=== PATIENT | female | born 1975 | race Caucasian/White ===

== ENCOUNTER 2019-02-15 15:24 | Emergency (ER) | payer SELFPAY ==
[2019-02-15] MEDS ORDERED: POLYMYXIN B SULFATE/TMP OPH SOLN (10 ML/ER DISP) OD ONE (18:15)
[2019-02-15] MEDS ORDERED: CETIRIZINE 10 MG TABLET PO ONE (18:16)
[2019-02-15] MEDS ORDERED: ACETAMINOPHEN 325 MG TABLET PO ONE (18:16)
--- NOTE | 2019-02-15 18:22 | ER Document Report ---
HPI - HPI Patient complains to provider of: Right eye swelling Time Seen by Provider: 02/15/19 17:34 Pain Level: 3 Context: Patient is an otherwise healthy 43-year-old female presents to the emergency department for right eye redness and discharge. Patient states yesterday she noted some minor erythema to her right eye. States also has some minor lower lid swelling. States this morning she woke up in her right eye was "crusted shut." Patient states the redness and swelling has continued and she is continued with generalized discharge which is why she presents to the emergency room. Patient's denying any other URI symptoms, denies fever. Denies any exposure to new detergents, lotions, eyedrops or make-up. Patient denies any foreign body sensation in her right eye, change in vision, pain with extraocular motion. - REPRODUCTIVE Reproductive: DENIES: : Past Medical History - General Information source: Patient - Social History Smoking Status: Unknown if Ever Smoked Family History: Reviewed & Not Pertinent, DM - Past Medical History Cardiac Medical History: Reports: Hx Hypertension Musculoskeletal Medical History: Reports Hx Arthritis, Reports Hx Musculoskeletal Trauma Traumatic Medical History: Reports: Hx Fractures - knn Past Surgical History: Reports: Hx Cholecystectomy - Immunizations Immunizations up to date: Yes Hx Diphtheria, Pertussis, Tetanus Vaccination: No - unknown Vertical Provider Document - CONSTITUTIONAL Agree With Documented VS: Yes Notes: GENERAL: Alert, interacts well. No acute distress. HEAD: Normocephalic, atraumatic. EYES: Pupils equal, round, and reactive to light. Extraocular movements intact and painless. No proptosis noted. Minor right conjunctival injection noted, mucoid discharge noted medial canthi. Lower lid minorly erythematous with some swollen tissue appears to be allergic in nature, not cellulitic. ENT: Oral mucosa moist, tongue midline. Nares patent, TM's intact, nonerythematous, nonbulging bilaterally. NECK: Full range of motion. Supple. Trachea midline. LUNGS: Clear to auscultation bilaterally, no wheezes, rales, or rhonchi. No respiratory distress. HEART: Regular rate and rhythm. No murmur ABDOMEN: Soft, non-tender. Non-distended. Bowel sounds present in all 4 quadrants. EXTREMITIES: Moves all 4 extremities spontaneously. No edema, normal radial and dorsalis pedis pulses bilaterally. No cyanosis. BACK: no cervical, thoracic, lumbar midline tenderness. No saddle anesthesia, normal distal neurovascular exam. NEUROLOGICAL: Alert and oriented x3. Normal speech. cranial nerves II through XII grossly intact. PSYCH: Normal affect, normal mood. SKIN: Warm, dry, normal turgor. - INFECTION CONTROL TRAVEL OUTSIDE OF THE [place] IN LAST 30 DAYS: No Course - Re-evaluation Re-evalutation: 02/15/19 18:23 Patient's physical exam is consistent with allergic reaction. The tissue under her right eye is swollen that does appear to have some serous fluid underneath it. I do not feel as though this is a cellulitic component at all. Patient has painless extraocular motion with no proptosis. There is scant amount of mucoid discharge noted at the medial canthus of the right eye. Discussed prophylactic treatment with antibiotic drops and also treating for allergic conjunctivitis. Discussed close return precautions and close follow-up with primary care provider. Patient stable for discharge. - Vital Signs Vital signs: Temp Pulse Resp BP Pulse Ox 98.9 F 67 16 135/86 H 100 02/15/19 16:07 02/15/19 16:07 02/15/19 16:07 02/15/19 16:07 02/15/19 16:07 Discharge - Discharge Clinical Impression: Conjunctivitis Qualifiers: Conjunctivitis type: acute Acute conjunctivitis type: unspecified Laterality: right Qualified Code(s): H10.31 - Unspecified acute conjunctivitis, right eye Condition: Stable Disposition: HOME, SELF-CARE Instructions: Conjunctivitis, Allergic, Conjunctivitis ([facility]), Eyedrop Use ([facility]) Additional Instructions: As we discussed you have been seen and treated in the emergency department for conjunctivitis. This is a bacterial infection of the inner lining of your eye. The skin around her eye that is red and swollen does appear to be an allergic reaction. Please make sure that you are using antibiotic eyedrops as prescribed. Please also make sure you are taking fcth-bap-lipqpto allergy medicine such as Zyrtec, Iris as instructed on the box. Please take [id number] Tylenol or Motrin for generalized pain. Please also follow-up with your primary care provider in the next 24 to 48 hours. As we discussed should you have any pain upon movement of your right eyeball or be unable to move your right eye in all 4 directions he should immediately return to the emergency room. Please also return to the emergency room for any other c oncerns. Prescriptions: Polymyxin B Sulf/Trimethoprim [Polytrim Eye Drops] 1 drop OD Q3H 7 Days #10 ml Forms: Return to Work
[2019-02-15 18:53] VITALS: BP 140/87
== END 2019-02-15 18:58 | disposition home or self-care (01) ==
LOC: ER 15:24
DX: H10.31 Unspecified acute conjunctivitis, right eye (principal); I10 Essential (primary) hypertension; Z90.49 Acquired absence of other specified parts of digestive tract
CPT/HCPCS: 99282; J3490

== ENCOUNTER 2019-04-20 17:06 | Emergency (ER) | payer SELFPAY ==
--- NOTE | 2019-04-20 18:09 | ER Document Report ---
ED Medical Screen (RME) - General Chief Complaint: Neck Swelling Stated Complaint: NECK LUMP Time Seen by Provider: 04/20/19 17:58 Mode of Arrival: Ambulatory Information source: Patient Notes: Patient presents with left-sided neck swelling for the past 2 weeks. Areas soft and nontender. Patient denies any fever or difficulty swallowing. Patient does have a cat but denies any recent scratches or bites. I have greeted and performed a rapid initial assessment of this patient. A comprehensive ED assessment and evaluation of the patient, analysis of test results and completion of the medical decision making process will be conducted by additional ED providers. TRAVEL OUTSIDE OF THE [place] IN LAST 30 DAYS: No - Related Data Allergies/Adverse Reactions: No Known Allergies Allergy (Verified 04/20/19 17:23) Past Medical History - Past Medical History Cardiac Medical History: Reports: Hx Hypertension Renal/ Medical History: Denies: Hx Peritoneal Dialysis Musculoskeltal Medical History: Reports Hx Arthritis, Reports Hx Musculoskeletal Trauma Traumatic Medical History: Reports: Hx Fractures - knn Past Surgical History: Reports: Hx Cholecystectomy - Immunizations Immunizations up to date: Yes Hx Diphtheria, Pertussis, Tetanus Vaccination: No - unknown Physical Exam - Vital signs Vitals: Temp Pulse Resp BP Pulse Ox 98.1 F 74 18 139/89 H 97 04/20/19 17:29 04/20/19 17:29 04/20/19 17:29 04/20/19 17:29 04/20/19 17:29 - General Notes: Left lateral neck swelling to the supraclavicular area Course - Vital Signs Vital signs: Temp Pulse Resp BP Pulse Ox 98.1 F 74 18 139/89 H 97 04/20/19 17:29 04/20/19 17:29 04/20/19 17:29 04/20/19 17:29 04/20/19 17:29
[2019-04-20 18:43] LABS: ABSOLUTE EOSINOPHILS # (AUTO) 0.1 10^3/uL (0.0-0.6); ABSOLUTE LYMPHOCYTES (AUTO) 1.4 10^3/uL (0.5-4.7); ABSOLUTE MONOCYTES (AUTO) 0.4 10^3/uL (0.1-1.4); ABSOLUTE NEUT (AUTO) 4.4 10^3/uL (1.7-8.2); BASOPHILS % (AUTO) 0.7 % (0-2); EOSINOPHILS % (AUTO) 1.8 % (0-6); HEMATOCRIT 37.1 % (36.0-47.0); LYMPHOCYTES % (AUTO) 21.5 % (13-45); MEAN CORPUSCULAR HEMOGLOBIN 23.9 pg (27.0-33.4); MEAN CORPUSCULAR HGB CONC 32.3 g/dL (32.0-36.0); MEAN CORPUSCULAR VOLUME 74 fl (80-97); MONOCYTES % (AUTO) 5.8 % (3-13); PLATELET COUNT 231 10^3/uL (150-450); RED CELL DISTRIBUTION WIDTH 15.7 % (11.5-14.0); SEGMENTED NEUTROPHILS % (AUTO) 70.2 % (42-78); TOTAL CELLS COUNTED % (AUTO) 100 %; WHITE BLOOD COUNT 6.3 10^3/uL (4.0-10.5)
[2019-04-20 19:08] LABS: ALBUMIN 4.5 g/dL (3.5-5.0); ALKALINE PHOSPHATASE 56 U/L (38-126); ANION GAP 8 (5-19); ASPARTATE AMINO TRANSFERASE 16 U/L (14-36); BILIRUBIN,DIRECT 0.3 mg/dL (0.0-0.4); BILIRUBIN,TOTAL 0.5 mg/dL (0.2-1.3); BLOOD UREA NITROGEN 12 mg/dL (7-20); CALCIUM 9.9 mg/dL (8.4-10.2); CARBON DIOXIDE 28 mmol/L (22-30); CHLORIDE 105 mmol/L (98-107); GLUCOSE 95 mg/dL (75-110); TOTAL PROTEIN 7.8 g/dL (6.3-8.2)
--- NOTE | 2019-04-20 19:42 | ER Document Report ---
ED General - General Chief Complaint: Neck Swelling Stated Complaint: NECK LUMP Time Seen by Provider: 04/20/19 17:58 Primary Care Provider: LEVAR LEYVA MD [COMMUNITY BASED STAFF] - Follow up in 3-5 days (primary care. ) Mode of Arrival: Ambulatory Notes: Patient is a 44-year-old female that presents to the emergency department for chief complaint of left neck swelling. Patient states that she noticed that her neck has been more swollen over the past 2 weeks, stayed about the same has not gotten any worse but has not improved much. She has not had any associated pain with this. She states she was having upper respiratory tract infection symptoms at that time with runny nose, congestion, that have improved some, but denies having any neck pain associated or stiffness. She states she incidentally noticed that, when she got sunburn it was looking closely at her neck and that her left side was more prominent. Denies history of thyroid disease. Denies any fevers, chills, night sweats, chest pain, shortness of breath or difficulty breathing. No other complaints at this time. Past Medical History: Denies chronic medical conditions Past Surgical History: Cholecystectomy Social History: Denies tobacco, alcohol or drug use, no primary care physician. Family History: Reviewed and noncontributory for presenting illness Allergies: Reviewed, see documented allergy list. REVIEW OF SYSTEMS: Other than noted above, the 12 point review of systems was reviewed with the patient and were negative, all pertinent findings are included in the HPI. PHYSICAL EXAMINATION: Vital signs reviewed, nursing noted reviewed. GENERAL: Well-appearing, well-nourished and in no acute distress. HEAD: Atraumatic, normocephalic. EYES: Eyes appear normal, extraocular movements intact, sclera anicteric, conjunctiva are normal. ENT: nares patent, oropharynx clear without exudates. Moist mucous membranes. NECK: Normal range of motion, supple without lymphadenopathy, the left side is more prominent, with no tenderness to palpation, no significant lymphadenopathy. Thyroid seems more prominent on the left side, compared to the right. LUNGS: Breath sounds clear to auscultation bilaterally and equal. No wheezes rales or rhonchi. HEART: Regular rate and rhythm without murmurs ABDOMEN: Soft, nontender, normoactive bowel sounds. No rebound, guarding, or rigidity. No masses appreciated. EXTREMITIES: Nontender, good range of motion, no pitting or edema. NEUROLOGICAL: No focal neurological deficits. Moves all extremities spontaneously Motor and sensory grossly intact on exam. PSYCH: Normal mood, normal affect. SKIN: Warm, Dry, normal turgor, no rashes or lesions noted on exposed skin TRAVEL OUTSIDE OF THE [place] IN LAST 30 DAYS: No - Related Data Allergies/Adverse Reactions: No Known Allergies Allergy (Verified 04/20/19 17:23) Past Medical History - General Information source: Patient - Social History Smoking Status: Never Smoker Family History: Reviewed & Not Pertinent, DM Patient has suicidal ideation: No Patient has homicidal ideation: No - Past Medical History Cardiac Medical History: Reports: Hx Hypertension Renal/ Medical History: Denies: Hx Peritoneal Dialysis Musculoskeletal Medical History: Reports Hx Arthritis, Reports Hx Musculoskeletal Trauma Traumatic Medical History: Reports: Hx Fractures - knn Past Surgical History: Reports: Hx Cholecystectomy - Immunizations Immunizations up to date: Yes Hx Diphtheria, Pertussis, Tetanus Vaccination: No - unknown Physical Exam - Vital signs Vitals: Temp Pulse Resp BP Pulse Ox 98.1 F 74 18 139/89 H 97 04/20/19 17:29 04/20/19 17:29 04/20/19 17:29 04/20/19 17:29 04/20/19 17:29 Course - Re-evaluation Re-evalutation: Patient seen and examined vital signs reviewed. Laboratory data and/or imaging were ordered as appropriate for the patient's presenting symptoms and complaint, with consideration of any critical or life threatening conditions that may be associated with their obtained history and exam as noted above. 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 No surrounding erythema, otherwise unremarkable. The patient was re-evaluated and was stable, no pain, appeared well, discussed with her the results, that she had branchial cleft cyst, likely got more swollen, due to her recent URI symptoms, I will put her on Augmentin, for more precautionary reasons, due to the increase in size, but she otherwise appears well, I feel she can be discharged to follow-up with ENT, and her primary care physician. I discussed with her that these are benign and gave her reassurance overall. 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 Results were discussed with the patient at this point, after careful consideration I feel that that patient can be discharged from the emergency department, the patient was educated treatments and reasons to return to the emergency department based on their presumed diagnosis as noted above, they were advised to followup with a primary care physician in 2-3 days. Patient was agreeable to plan of care. *Note is created using voice recognition software and may contain spelling, syntax or grammatical errors. Laboratory 04/20/19 04/20/19 04/20/19 18:25 18:25 19:50 WBC 6.3 RBC 5.00 Hgb 12.0 Hct 37.1 MCV 74 L MCH 23.9 L MCHC 32.3 RDW 15.7 H Plt Count 231 Lymph % (Auto) 21.5 Warren % (Auto) 5.8 Eos % (Auto) 1.8 Baso % (Auto) 0.7 Absolute Neuts (auto) 4.4 Absolute Lymphs (auto) 1.4 Absolute Monos (auto) 0.4 Absolute Eos (auto) 0.1 Absolute Basos (auto) 0.0 Seg Neutrophils % 70.2 Sodium 141.0 Potassium 4.0 Chloride 105 Carbon Dioxide 28 Anion Gap 8 BUN 12 Creatinine 0.63 Est GFR ( Amer) > 60 Est GFR (MDRD) Non-Af > 60 Glucose 95 Calcium 9.9 Total Bilirubin 0.5 Direct Bilirubin 0.3 Neonat Total Bilirubin Not Reportable Neonat Direct Bilirubin Not Reportable Neonat Indirect Bili Not Reportable AST 16 ALT 10 Alkaline Phosphatase 56 Total Protein 7.8 Albumin 4.5 TSH 0.95 Free T4 0.86 Free T3 pg/mL 3.67 Thyroid Ultrasound 04/20/19 18:06 IMPRESSION: Palpable abnormality about the leftward aspect of the neck corresponds to a large complex cystic lesion measuring up to 6.6 x 7.9 x 2.9 cm in size. The etiology and sterility of this collection is indeterminate. Consider correlation with contrast-enhanced CT of the neck. copyright 2010 [employer]- All Rights Reserved Soft Tissue Neck CT 04/20/19 21:18 IMPRESSION: 1. 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 No associated acute inflammatory changes. 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 Occasionally they become more swollen when you are fighting an infection, and we will place you on antibiotic for 7 days, to see if it improves, the swelling may take weeks to months for her to go back down. Please follow-up with her primary care physician, one has been listed with your paper work. Prescriptions: Amox Tr/Potassium Clavulanate [Augmentin 875-125 Tablet] 1 tab PO BID 7 Days #14 tablet Referrals: LEVAR LEYVA MD [COMMUNITY BASED STAFF] - Follow up in 3-5 days (primary care. )
[2019-04-20 20:20] LABS: FREE T3 3.67 pg/mL (2.77-5.27); FREE T4 (FREE THYROXINE) 0.86 ng/dL (0.78-2.19)
[2019-04-20 20:34] LABS: THYROID STIMULATING HORMONE 0.95 uIU/mL (0.47-4.68)
--- NOTE | 2019-04-20 21:14 | RADIOLOGY REPORT (SQ) ---
EXAM DESCRIPTION: US HEAD NECK SOFT TISSUE COMPLETED DATE/TME: 04/20/2019 18:06 CLINICAL HISTORY: 44 years, Female, L lat neck swelling COMPARISON: None. TECHNIQUE: Axial 2-D grayscale images of the left lateral neck were acquired. Doppler was utilized. LIMITATIONS: None. FINDINGS: Sonographic evaluation of the left lateral neck was performed at the site of the patient's palpable abnormality. Here, there is a large anechoic lesion with thin internal septations measuring approximately 6.6 x 7.9 x 2.9 cm in size. Focused sonographic evaluation of the right side of the neck was performed for comparison. IMPRESSION: Palpable abnormality about the leftward aspect of the neck corresponds to a large complex cystic lesion measuring up to 6.6 x 7.9 x 2.9 cm in size. The etiology and sterility of this collection is indeterminate. Consider correlation with contrast-enhanced CT of the neck. copyright 2010 [employer]- All Rights Reserved
--- NOTE | 2019-04-21 01:18 | RADIOLOGY REPORT (SQ) ---
EXAM DESCRIPTION: [facility]: CT NECK WITH IV CONTRAST CLINICAL HISTORY: 44 years Female; left neck swelling TECHNIQUE: CT soft tissue neck with contrast All CT scans at this facility use dose modulation, iterative reconstruction, and/or weight based dosing when appropriate to reduce radiation dose to as low as reasonably achievable. COMPARISON: None. FINDINGS: In the left neck posterior to the left sternocleidomastoid muscle, lateral to the carotid space, and lateral to the left paraspinal muscles there is a large homogenous hypodense structure 6.6 cm oblique AP x 4 centimeters oblique LR x 7 cm SI. No surrounding edema. Density is 10 HU. No enhancing wall or septations. The lesion extends to within 1 to 2 mm of the lateral margin of the left thyroid lobe. No definite sinus tract is identified. No cervical adenopathy. Salivary glands are unremarkable. There is a small 4 mm thyroid hypodensity, but no suspicious thyroid nodules. Larynx and epiglottis are normal. Visualized portions of the paranasal sinuses are clear. Mastoids are clear. Bony structures are within normal limits. Lung apices are clear. IMPRESSION: 1. 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 No associated acute inflammatory changes.
[2019-04-21 01:57] VITALS: BP 134/91
[2019-04-25 10:36] LABS: BARTONELLA HENSELAE IGG Negative titer (Neg:<1:320); BARTONELLA HENSELAE IGM Negative titer (Neg:<1:100); BARTONELLA QUINTANA IGG Negative titer (Neg:<1:320)
[2019-04-25 13:25] LABS: BARTONELLA QUINTANA IGM Negative titer (Neg:<1:100)
== END 2019-04-21 01:57 | disposition home or self-care (01) ==
LOC: ER 17:06
DX: Q18.0 Sinus, fistula and cyst of branchial cleft (principal); R22.1 Localized swelling, mass and lump, neck; I10 Essential (primary) hypertension; Z90.49 Acquired absence of other specified parts of digestive tract
CPT/HCPCS: 36415; 70491; 76536; 80053; 84439; 84443; 84481; 85025; 86317; 99284

== ENCOUNTER → 2019-08-11 | Outpatient (CLI) | payer OTHER ==
--- NOTE | 2019-08-11 16:28 | RADIOLOGY REPORT (SQ) ---
EXAM DESCRIPTION: CT SOFT TISSUE NECK WITH COMPLETED DATE/TIME: 08/11/2019 11:48 am REASON FOR STUDY: LOCALIZED SWELLING, MASS AND LUMP, NECK R22.1 LOCALIZED SWELLING, MASS AND LUMP, NECK COMPARISON: 04/20/2019. TECHNIQUE: Post IV contrasted scanning from skull base through lung apices with review of bone, soft tissue and lung windows. Reconstructed coronal and sagittal MPR images reviewed. All images stored on PACS. All CT scanners at this facility use dose modulation, iterative reconstruction, and/or weight based d osing when appropriate to reduce radiation dose to as low as reasonably achievable (ALARA). [facility]: Dose Right [facility]: CareDose [facility]: Dose Right [facility]: Teradose 4D [facility]: [email or web address] CONTRAST TYPE AND DOSE: contrast/concentration: Isovue 350.00 mg/ml; Total Contrast Delivered: 75.0 ml; Total Saline Delivered: 55.0 ml RENAL FUNCTION: None required. The patient is less than 50 years old. RADIATION DOSE: . LIMITATIONS: None. FINDINGS: SKULL BASE: Intact. MAJOR SALIVARY GLANDS: No solid or cystic masses. No inflammatory changes. LYMPHADENOPATHY: No adenopathy. MUCOSAL MASSES OR ASYMMETRY: No mucosal masses or asymmetry. LARYNX/CORDS: No abnormal findings. VASCULAR STRUCTURES: The major vessels are patent. LUNG APICES: Clear. BONES: Intact. THYROID: Normal size. No masses. PARANASAL SINUSES: Clear. OTHER: No other significant finding. IMPRESSION: NO SIGNIFICANT FINDING IN THE SOFT TISSUES OF THE NECK. THE PREVIOUSLY SEEN CYSTIC MASS ON THE LEFT SIDE OF THE NECK HAS BEEN REMOVED. NO ABNORMAL FINDINGS AT THE SURGICAL SITE. TECHNICAL DOCUMENTATION: JOB ID: [id number] Quality ID # [id number]: Final reports with documentation of one or more dose reduction techniques (e.g., Au tomated exposure control, adjustment of the mA and/or kV according to patient size, use of iterative reconstruction technique) 2010 [employer]- All Rights Reserved Reading location - IP/workstation name: [email or web address]
== END ==
LOC: RAD 10:18
PROVIDERS: ATTEND Otolaryngology
DX: R22.1 Localized swelling, mass and lump, neck (principal)
CPT/HCPCS: 70491; 81025

== ENCOUNTER 2020-02-07 23:38 | Emergency (ER) | payer MEDICAID, OTHER ==
[2020-02-08] MEDS ORDERED: CYCLOBENZAPRINE HCL 10 MG TABLET PO ONE (00:20)
[2020-02-08] MEDS ORDERED: METHYLPREDNISOLONE INJ 125 MG/2 ML SDV IV ONE (00:20)
[2020-02-08] MEDS ORDERED: KETOROLAC TROMETHAMINE 60 MG/2 ML SDV IM ONE (00:20)
--- NOTE | 2020-02-08 00:24 | ER Document Report ---
HPI - HPI Patient complains to provider of: Back pain Time Seen by Provider: 02/08/20 00:15 Pain Level: 3 Context: 44-year-old female previous history of lumbar herniated disks presents to the emergency room complaining of left lower back pain for the past 5 days. Worse today. Denies any trauma or injury. Has been taking Motrin without relief. Denies any loss control of her bowels or bladder, no saddle anesthesia. No red flags. Denies any urinary symptoms. No flank pain. Associated Symptoms: None Exacerbated by: Movement, Walking Relieved by: Denies Similar symptoms previously: Yes Recently seen / treated by doctor: No - ROS Systems Reviewed and Negative: Yes All other systems reviewed and negative - CONSTITUTIONAL Constitutional: DENIES: Fever - NEURO Neurology: DENIES: Weakness - CARDIOVASCULAR Cardiovascular: DENIES: Chest pain - RESPIRATORY Respiratory: DENIES: Trouble Breathing - GASTROINTESTINAL Gastrointestinal: DENIES: Abdominal Pain, Nausea - URINARY Urinary: DENIES: Dysuria, Urgency, Frequency - REPRODUCTIVE Reproductive: DENIES: : - MUSCULOSKELETAL Musculoskeletal: REPORTS: Back Pain - DERM Skin Color: Normal Skin Problems: None Past Medical History - General Information source: Patient - Social History Smoking Status: Never Smoker Frequency of alcohol use: None Drug Abuse: None Family History: Reviewed & Not Pertinent, DM Patient has homicidal ideation: No - Past Medical History Cardiac Medical History: Reports: Hx Hypertension Renal/ Medical History: Denies: Hx Peritoneal Dialysis Musculoskeletal Medical History: Reports Hx Arthritis, Reports Hx Musculos keletal Trauma Traumatic Medical History: Reports: Hx Fractures - knn Past Surgical History: Reports: Hx Cholecystectomy - Immunizations Immunizations up to date: Yes Hx Diphtheria, Pertussis, Tetanus Vaccination: No - unknown Vertical Provider Document - CONSTITUTIONAL Agree With Documented VS: Yes Exam Limitations: No Limitations General Appearance: Mild Distress - INFECTION CONTROL TRAVEL OUTSIDE OF THE [place] IN LAST 30 DAYS: No - HEENT HEENT: Atraumatic, Normocephalic - NECK Neck: Normal Inspection, Supple - RESPIRATORY Respiratory: Breath Sounds Normal, No Respiratory Distress, Chest Non-Tender. negative: Rales, Rhonchi, Wheezing - CARDIOVASCULAR Cardiovascular: Regular Rate, Regular Rhythm, No Murmur - GI/ABDOMEN Gastrointestinal: Abdomen Soft, Abdomen Non-Tender. negative: Abdominal Guarding, Abdominal Rebound, No Organomegaly - BACK Back: Abnormal Inspection - Tenderness on palpation from L4-S1. There is tenderness over the left sciatic notch. She has negative straight leg raising bilaterally.. negative: CVA Tenderness-Right, CVA Tenderness-Left - MUSCULOSKELETAL/EXTREMETIES Musculoskeletal/Extremeties: FROM, Non-Tender - NEURO Level of Consciousness: Awake, Alert, Appropriate Motor/Sensory: No Motor Deficit, No Sensory Deficit Deep Tendon Reflexes: 2+ Notes: Patella reflexes are equal and adequate bilaterally. She is ambulatory with a steady gait. She is neurovascularly intact. Course - Re-evaluation Re-evalutation: 02/08/20 01:09 Patient is resting comfortably with decreased pain. Ambulatory with a steady gait. Negative straight leg raising bilaterally. Neurovascularly intact. Counseled take all medications as prescribed. Outpatient follow-up with a primary care physician if not improving in 2 to 3 days. Patient was provided with on-call physician. Patient was given strict return to the emergency room guidelines. Return for any new or worsening symptoms. All questions were answered. Patient verbalized understanding and agrees with plan of care. - Vital Signs Vital signs: Temp Pulse Resp BP Pulse Ox 97.7 F 78 16 152/90 H 100 02/08/20 00:15 02/07/20 23:46 02/07/20 23:46 02/07/20 23:46 02/07/20 23:46 Discharge - Discharge Clinical Impression: Back pain with left-sided sciatica Condition: Stable Disposition: HOME, SELF-CARE Instructions: Low Back Pain ([facility]), Muscle Strain ([facility]), Warm Packs ([facility]) Additional Instructions: You have been seen in the Emergency Department (ED) today for back pain. Your workup and exam have not shown any acute abnormalities and you are likely suffering from muscle strain or possible problems with your discs, but there is no treatment that will fix your symptoms at this time. Please take the naproxen that has been prescribed as directed. You should also purchase a local lidocaine cream such as "aspercreme with lidocaine" and use per bottle instructions to the affected area. Apply heat to the area as often as you are able. Continue to keep active and avoid prolonged periods of bed rest. Please follow up with your doctor as soon as possible regarding today's ED visit and your back pain. Return to the ED for worsening back pain, fever, weakness or numbness of either leg, or if you develop either (1) an inability to urinate or have bowel movements, or (2) loss of your ability to control your bathroom functions (if you start having "accidents"), or if you develop other new symptoms that concern you.concern you. Prescriptions: Prednisone [Deltasone 20 mg Tablet] See Protocol PO DAILY 9 Days #18 tablet Cyclobenzaprine HCl [Flexeril 10 mg Tablet] 10 mg PO TIDP PRN #15 tab PRN Reason: Naproxen 500 mg PO BID PRN #14 tablet PRN Reason: Referrals: EVA CARRINGTON MD [NO LOCAL MD] - Follow up as needed STEFFI REYES MD [ACTIVE STAFF] - Follow up as needed
[2020-02-08] MEDS ORDERED: METHYLPREDNISOLONE INJ 125 MG/2 ML SDV IM ONE ×2 (00:30→00:31)
[2020-02-08 02:43] VITALS: BP 140/88
== END 2020-02-08 01:38 | disposition home or self-care (01) ==
LOC: ER 23:38
DX: M54.32 Sciatica, left side (principal); I10 Essential (primary) hypertension; Z90.49 Acquired absence of other specified parts of digestive tract
CPT/HCPCS: 99283; 96372; 96374; J3490; J1885; J2930

== ENCOUNTER 2020-08-12 11:25 | Emergency (ER) | payer MEDICAID, OTHER ==
--- NOTE | 2020-08-12 12:03 | EKG REPORT ---
SEVERITY:- OTHERWISE NORMAL ECG - SINUS RHYTHM T INVERSIONS IN V2, NONSPECIFIC, CLINICAL CORRELATION NEEDED. : Confirmed by: Corey Nava MD 12-Aug-2020 12:03:02
--- NOTE | 2020-08-12 12:33 | RADIOLOGY REPORT (SQ) ---
EXAM DESCRIPTION: CHEST SINGLE VIEW IMAGES COMPLETED DATE/TIME: 08/12/2020 12:24 pm REASON FOR STUDY: bed 2 palpitations COMPARISON: 2015 EXAM PARAMETERS: NUMBER OF VIEWS: One view. TECHNIQUE: Single frontal radiographic view of the chest acquired. RADIATION DOSE: NA LIMITATIONS: None. FINDINGS: LUNGS AND PLEURA: No opacities, masses or pneumothorax. No pleural effusion. MEDIASTINUM AND HILAR STRUCTURES: No masses. Contour normal. HEART AND VASCULAR STRUCTURES: Heart normal in size. Normal vasculature. BONES: No acute findings. HARDWARE: None in the chest. OTHER: No other significant finding. IMPRESSION: NO ACUTE RADIOGRAPHIC FINDING IN THE CHEST. TECHNICAL DOCUMENTATION: JOB ID: [id number] 2010 [employer]- All Rights Reserved Reading location - IP/workstation name: [email or web address]
[2020-08-12 12:49] LABS: ABSOLUTE BASOPHILS # (AUTO) 0.1 10^3/uL (0.0-0.2); ABSOLUTE EOSINOPHILS # (AUTO) 0.1 10^3/uL (0.0-0.6); ABSOLUTE MONOCYTES (AUTO) 0.4 10^3/uL (0.1-1.4); ABSOLUTE NEUT (AUTO) 3.3 10^3/uL (1.7-8.2); BASOPHILS % (AUTO) 1.2 % (0-2); EOSINOPHILS % (AUTO) 1.4 % (0-6); HEMATOCRIT 32.5 % (36.0-47.0); HEMOGLOBIN 10.2 g/dL (12.0-15.5); LYMPHOCYTES % (AUTO) 19.8 % (13-45); MEAN CORPUSCULAR HEMOGLOBIN 20.8 pg (27.0-33.4); MEAN CORPUSCULAR HGB CONC 31.3 g/dL (32.0-36.0); MEAN CORPUSCULAR VOLUME 67 fl (80-97); MONOCYTES % (AUTO) 8.6 % (3-13); PLATELET COUNT 259 10^3/uL (150-450); RED BLOOD COUNT 4.88 10^6/uL (3.72-5.28); RED CELL DISTRIBUTION WIDTH 17.3 % (11.5-14.0); TOTAL CELLS COUNTED % (AUTO) 100 %; WHITE BLOOD COUNT 4.8 10^3/uL (4.0-10.5)
[2020-08-12 13:19] LABS: ALBUMIN 4.3 g/dL (3.5-5.0); ALKALINE PHOSPHATASE 46 U/L (38-126); ANION GAP 9 (5-19); ASPARTATE AMINO TRANSFERASE 27 U/L (14-36); BILIRUBIN,DIRECT 0.2 mg/dL (0.0-0.4); BILIRUBIN,TOTAL 0.6 mg/dL (0.2-1.3); BLOOD UREA NITROGEN 9 mg/dL (7-20); CALCIUM 9.1 mg/dL (8.4-10.2); CARBON DIOXIDE 23 mmol/L (22-30); CHLORIDE 109 mmol/L (98-107); CREATINE KINASE 121 U/L (30-135); GLUCOSE 78 mg/dL (75-110); POTASSIUM 4.4 mmol/L (3.6-5.0); TOTAL PROTEIN 7.6 g/dL (6.3-8.2)
--- NOTE | 2020-08-12 13:24 | ER Document Report ---
ED Cardiac - General Chief Complaint: Chest Pain Stated Complaint: FAST HEART BEAT/LEFT ARM PAIN Time Seen by Provider: 08/12/20 13:05 TRAVEL OUTSIDE OF THE [place] IN LAST 30 DAYS: No - HPI Notes: Patient is a 45-year-old female who presents with left-sided chest pain radiating down her left arm. Patient states that symptoms began this morning when she was drinking coffee. It feels like a tightness that lasts for several seconds and then resolves. She denies any cough or recent illnesses. She state s she sometimes has some increased tightness with deep breathing. She has not taken anything for pain. She occasionally gets lightheaded with the symptoms. This has never happened to her before. Patient denies any family cardiac history. She does not have high cholesterol or high blood pressure. Patient has never had any cardiac issues. She does mention that she had a blood clot in her leg in the past. She was never on a blood thinner. She states she was just told to wear compression stockings. Does not take any medications. 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 - Related Data Allergies/Adverse Reactions: No Known Allergies Allergy (Verified 02/08/20 00:15) Past Medical History - General Information source: Patient - Social History Smoking Status: Never Smoker Family History: Reviewed & Not Pertinent, DM Patient has homicidal ideation: No - Past Medical History Cardiac Medical History: Reports: Hx Hypertension Renal/ Medical History: Denies: Hx Peritoneal Dialysis Musculoskeletal Medical History: Reports Hx Arthritis, Reports Hx Musculoskeletal Trauma Traumatic Medical History: Reports: Hx Fractures - knn Past Surgical History: Reports: Hx Cholecystectomy - Immunizations Immunizations up to date: Yes Hx Diphtheria, Pertussis, Tetanus Vaccination: No - unknown Review of Systems - Review of Systems Notes: CONSTITUTIONAL: No fever or weight loss. Positive for fatigue. SKIN: No rash. HENT: No congestion, ear pain, or sore throat. CARDIOVASCULAR: Positive for chest pain. RESPIRATORY: No cough,congestion, or wheezing. Positive for shortness of breath. GASTROINTESTINAL: No abdominal pain, nausea, vomiting, bloody stools or diarrhea. GENITOURINARY: No dysuria. MUSCULOSKELETAL: Positive for left arm tightness. LYMPHATIC: No swollen glands. NEUROLOGIC: No seizures. No headache, focal weakness or sensory changes. HEMATOLOGIC: No unusual bruising or bleeding. PSYCHIATRIC: No depression or anxiety. Physical Exam - Vital signs Vitals: Temp Pulse Resp BP Pulse Ox 98.6 F 75 18 154/70 H 100 08/12/20 11:38 08/12/20 11:38 08/12/20 11:38 08/12/20 11:38 08/12/20 11:38 - General General appearance: Appears well Notes: VITAL SIGNS: Within normal limits. GENERAL: No acute distress, non-toxic appearance. HEAD: Normal with no signs of head trauma. EYES: Conjunctiva normal, no discharge. EARS: Hearing grossly intact. NECK: Normal range of motion, no tenderness, supple, no lymphadenopathy, No adenopathy, no JVD. Well healing surgical scar on the left side of her neck. CHEST: Clear breath sounds bilaterally. No wheezes, rales, or rhonchi. CARDIAC: Regular rate and rhythm. S1 and S2, without murmurs, gallops, or rubs. Reproducible left sided chest pain with palpation. No rash. VASCULAR: No Edema. Peripheral pulses normal and equal in radial pulses bilateral. ABDOMEN: Normal and soft with no tenderness, no masses or pulsatile masses. MUSCULOSKELETAL: Good range of motion of all major joints. Extremities without clubbing, cyanosis or edema. No obvious swelling to left arm. No skin discoloration. Left arm compartments are soft. NEUROLOGICAL: Alert and oriented x 3. No focal sensory or strength deficits. Speech normal. Follows commands appropriately. PSYCHIATRIC: Normal Affect, judgement and mood. SKIN: Normal appearance with no rashes or lesions. Course - Re-evaluation Re-evalutation: 08/12/20 13:25 Patient states that her pain is intermittent. It lasts for several seconds and then resolves. It is slightly pleuritic. Her left arm feels like a tightness pain. Patient mentions she has had a blood clot in the past but was not told to be on any blood thinners. She also mentions recent neck surgery last month. I will obtain a CTA to rule out a PE. 08/12/20 21:20 Cardiac work-up and CTA were negative. Patient later mentioned to me that she has had off-and-on swelling of her left arm. I decided to obtain an ultrasound of her left arm to rule out a DVT. Ultrasound returned positive. I discussed with oncology, Dr. Juarez, about the positive ultrasound. Possibly this could be from her recent brachial cleft surgery. She has no swelling around her neck. He recommended that I place her on Xarelto. She will need to follow-up with her PCP. She states she will see [facility]. She has never had any bleeding issues. I discussed all results with the patient. She verbalized understanding. All questions were answered appropriately. Patient is very agreeable to the plan. I gave her strict return precautions and she verbalized understanding. 08/12/20 21:23 - Vital Signs Vital signs: Temp Pulse Resp BP Pulse Ox 98.6 F 70 16 150/97 H 100 08/12/20 20:50 08/12/20 20:50 08/12/20 20:50 08/12/20 20:50 08/12/20 20:50 - Laboratory Results Result Diagrams: 08/12/20 12:30 08/12/20 12:30 Laboratory Results Interpreted: 08/12/20 08/12/20 12:30 12:30 Hgb 10.2 L Hct 32.5 L MCV 67 L MCH 20.8 L MCHC 31.3 L RDW 17.3 H Chloride 109 H Critical Laboratory Results Reviewed: No Critical Results - Radiology Results Critical Radiology Results Reviewed: No Critical Results - EKG Interpretation by Me EKG shows normal: Sinus rhythm Rate: Normal Rhythm: NSR When compared to previous EKG there are: No significant change Additional EKG results interpreted by me: 08/12/20 13:24 Sinus rhythm at a rate of 75. QTc 479. No acute ST changes. EKG is similar to previous. Discharge - Discharge Clinical Impression: Thrombosis of left internal jugular vein, Left arm pain Chest pain Qualifiers: Chest pain type: unspecified Qualified Code(s): R07.9 - Chest pain, unspecified Condition: Stable Disposition: HOME, SELF-CARE Instructions: Chest Wall Pain ([facility]) Additional Instructions: You have a thrombus in your left internal jugular vein. Please take your blood thinner as prescribed. Please follow-up with your family doctor. He will need to continue the medication. Please return to the ER immediately for any worsening pain or symptoms. Do not take ibuprofen with this medication. Prescriptions: Rivaroxaban [Xarelto 15 mg Tablet] 15 mg PO BID 21 Days #42 tablet
[2020-08-12] MEDS ORDERED: ASPIRIN 325 MG TABLET PO ONE (13:25)
[2020-08-12 13:37] LABS: CREATINE KINASE MB 0.69 ng/mL (<4.55); TROPONIN I < 0.012 ng/mL
--- NOTE | 2020-08-12 16:25 | RADIOLOGY REPORT (SQ) ---
EXAM DESCRIPTION: CTA CHEST IMAGES COMPLETED DATE/TIME: 08/12/2020 4:07 pm REASON FOR STUDY: left sided chest pain, rule out PE COMPARISON: None. TECHNIQUE: CT scan of the chest performed using helical scanning technique with dynamic intravenous contrast injection. Images reviewed with lung, soft tissue and bone windows. Reconstructed coronal and sagittal MPR images reviewed. Additional 3 dimensional post-processing performed to develop Maximal Intensity Projection images (CT P). All images stored on PACS. All CT scanners at this facility use dose modulation, iterative reconstruction, and/or weight based d osing when appropriate to reduce radiation dose to as low as reasonably achievable (ALARA). [facility]: Dose Right [facility]: CareDose [facility]: Dose Right [facility]: Teradose 4D [facility]: Abakus CONTRAST TYPE AND DOSE: Contrast/concentration: Isovue 350.00 mmol/ml; Total Contrast Delivered: 75. 0 ml; Total Saline Delivered: 50.9 ml Contrast bolus optimized for the pulmonary arteries. RENAL FUNCTION: None required. The patient is less than 50 years old. RADIATION DOSE: CT Rad equipment meets quality standard of care and radiation dose reduction techniq ues were employed. CTDIvol: 5.6 - 10.0 mGy. DLP: 372 mGy-cm. . LIMITATIONS: None. FINDINGS: LUNGS AND PLEURA: The trachea and main bronchi are patent. There is no consolidation, iona und-glass opacification, pleural effusion or pneumothorax. AORTA AND GREAT VESSELS: No aneurysm or dissection of the thoracic aorta. HEART: No pericardial effusion. No cardiomegaly. PULMONARY ARTERIES: No emboli. HILAR AND MEDIASTINAL STRUCTURES: No adenopathy or mass. HARDWARE: None in the chest. UPPER ABDOMEN: Cholecystectomy clips. THYROID AND OTHER SOFT TISSUES: No adenopathy or mass. BONES: No fracture or osseous lesion. 3D MIPS: Confirm above findings. OTHER: No other findings. IMPRESSION: No pulmonary emboli or acute cardiopulmonary process. COMMENT: Quality ID # [id number]: Final reports with documentation of one or more dose reduction techniques (e.g., Automated exposure control, adjustment of the mA and/or kV according to patient size, use of iterative reconstruction technique) TECHNICAL DOCUMENTATION: JOB ID: [id number] 2010 [employer]- All Rights Reserved Reading location - IP/workstation name: [email or web address]
--- NOTE | 2020-08-12 19:38 | RADIOLOGY REPORT (SQ) ---
EXAM DESCRIPTION: VENOUS UNILATERAL UPPER IMAGES COMPLETED DATE/TIME: 08/12/2020 7:10 pm REASON FOR STUDY: left arm pain/swelling COMPARISON: None. TECHNIQUE: Dynamic and static adorno scale and color images acquired of the left arm venous system. Se lected spectral images acquired with additional compression and augmentation maneuvers. The contralat eral subclavian vein and internal jugular vein were also imaged. Images stored on PACS. LIMITATIONS: None. FINDINGS: INTERNAL JUGULAR VEIN: Occlusive thrombus in the left internal jugular vein mid to distal segments. Small diameter, question of chronic trickle flow seen. SUBCLAVIAN VEIN: Normal compression, augmentation. No visualized echogenic material on adorno scale. No defects on color images. AXILLARY VEIN: Normal compression, augmentation. No visualized echogenic material on adorno scale. No d efects on color images. BRACHIAL VEIN: Normal compression, augmentation. No visualized echogenic material on adorno scale. No d efects on color images. BASILIC VEIN: Normal compression, augmentation. No visualized echogenic material on adorno scale. No de fects on color images. CEPHALIC VEIN: Normal compression, augmentation. No visualized echogenic material on adorno scale. No d efects on color images. OTHER: No other significant finding. IMPRESSION: 1. POSTITIVE EXAM. Occlusive thrombus left internal jugular vein mid to distal segments . COMMENT: 1. The results of this examination were given to the patient's provider on 08/12/2020 at 1 7:45 hours. TECHNICAL DOCUMENTATION: JOB ID: [id number] 2010 [employer]- All Rights Reserved Reading location - IP/workstation name: [email or web address]
[2020-08-12] MEDS ORDERED: RIVAROXABAN 15 MG TABLET PO ONE (19:55)
[2020-08-12 20:11] LABS: INTERNATIONAL RATION (INR) 1.03; PROTHROMBIN TIME 13.7 SEC (11.4-15.4)
[2020-08-12 20:54] VITALS: BP 150/97
== END 2020-08-12 20:53 | disposition home or self-care (01) ==
LOC: ER 11:25
DX: I82.C12 Acute embolism and thrombosis of left internal jugular vein (principal); R07.9 Chest pain, unspecified; M79.602 Pain in left arm; I10 Essential (primary) hypertension; Z90.49 Acquired absence of other specified parts of digestive tract
CPT/HCPCS: 36415; 71045; 71275; 80053; 82550; 82553; 84484; 84703; 85025; 85610; 93005; 93010; 93971; 99285